=== PATIENT | male | born 1980 | race Caucasian/White ===

== ENCOUNTER 2023-05-15 19:48 | Outpatient (CLI) | payer BC, SELFPAY ==
--- NOTE | 2023-05-23 14:54 | W.PM.SLEEP ---
Sleep Study Details Details Interpreting Provider: Teddy Date of Sleep Study: 05/15/23 Sleep Study Details: STUDY TYPE:? Home unattended ? BMI:? Not recorded ORDERING PROVIDER:? Teddy INDICATION:? Concerns about sleep apnea ? SLEEP SUMMARY:? 564.8 minutes monitored RESPIRATORY SUMMARY:? AHI 6.7 using rule 1A/3% desaturation, 3.8 using CMS guidelines Low oxygen 90 No snoring was noted PERIODIC LIMB MOVEMENTS OF SLEEP:? Not recorded during home study CARDIAC:? Range 41-94, mean 50 beats per minute IMPRESSION:? Mild obstructive sleep apnea using 3% desaturation guideline. RECOMMENDATION: If patient is symptomatic treatment could consist of CPAP, dental appliance, weight loss and/or airway expansion surgery.
== END 2023-05-15 19:49 | disposition home or self-care (01) ==
LOC: SLEEP 19:48
PROVIDERS: PCP Family Medicine; Visit Provider Otolaryngology
DX: G47.33 Obstructive sleep apnea (adult) (pediatric) (principal)
CPT/HCPCS: 95806

== ENCOUNTER 2024-01-24 08:20 | Outpatient (CLI) | payer BC, SELFPAY | END 2024-01-24 08:21 | disposition home or self-care (01) | LOC: NFLDREF 01-25 11:00 | PROVIDERS: PCP Family Medicine; Referring Provider Family Medicine; Visit Provider Family Medicine | DX: E78.5 Hyperlipidemia, unspecified (principal); Z13.1 Encounter for screening for diabetes mellitus | CPT/HCPCS: 80061; 82947 ==